=== PATIENT | male | born 1995 | race Caucasian/White ===

== ENCOUNTER 2017-02-08 13:20 | Emergency (ER) | payer OTHER ==
[~2017-02-08] VITALS: Ht 180.3 cm; Wt 66.5 kg
[~2017-02-08 13:20] MED LIST: NO DAILY MEDS
--- OUTSIDE RECORDS SUMMARY | 2017-02-08 13:25 | XMS REPORT | Referral Summary ---
Author Author [facility] Organization [facility] Address Unknown Phone Unavailable Care Team Providers Care Financial Aid Coordinator Name Role Phone Dru Shah Primary Care Physician [phone] Encounter VC Date(s): 03/30/15 - 03/30/15 [facility] [address] [place] [address] Discharge Disposition: 01-Home or Self Care Attending Physician: Bryce Shah MD Admitting Physician: Bryce Shah MD Vital Signs Most recent to 1 oldest [Reference Range]: Temperature Tympanic 37.3 degC [36.6-38.1 degC] (03/30/15 3:32 PM) Peripheral Pulse 94 bpm Rate [60-100 bpm] (03/30/15 3:32 PM) Respiratory Rate 16 br/min [14-20 br/min] (03/30/15 3:32 PM) Blood Pressure 124/68 mmHg [90-140/60-90 mmHg] (03/30/15 3:32 PM) SpO2 98 % (03/30/15 3:32 PM) Problem List Condition Effective Dates Status Health Status Informant Depression(Confirmed Active ) Outbursts of Active anger(Confirmed) Tobacco Active patient user(Confirmed) Common Active wart(Confirmed) Allergies, Adverse Reactions, Alerts No Known Allergies Medications sertraline 50 mg oral tablet 50 mg 1 tabs, Oral, BID, # 60 tabs, 5 Refill(s), Pharmacy: [facility] # [id number], 1 tabs Oral BID,x30 days Start Date: 04/10/15 Stop Date: 10/07/15 Status: Ordered Results No data available for this section Immunizations Vaccine Date Refusal Reason diphtheria/pertussis, acel/tetanus ped 07/27/95 haemophilus b conjugate (HbOC) vaccine 05/04/95 measles/mumps/rubella virus vaccine 05/04/95 Procedures Procedure Date Related Diagnosis Body Site Destruction (eg, laser surgery, 03/30/15 electrosurgery, cryosurgery, chemosurgery, surgical curettement), premalignant lesions (eg, actinic keratoses); first lesion Destruction (eg, laser surgery, 03/30/15 electrosurgery, cryosurgery, chemosurgery, surgical curettement), premalignant lesions (eg, actinic keratoses); first lesion Destruction (eg, laser surgery, 03/30/15 electrosurgery, cryosurgery, chemosurgery, surgical curettement), premalignant lesions (eg, actinic keratoses); first lesion Social History Social History Type Response Smoking Status Current every day smoker; Type: Cigarettes; Tobacco use per day: Pack Assessment and Plan Extracted from: Title: Office Visit Note Author: Bryce Shah MD Date: 03/30/15 Assessment/Plan Common wart Depression Outbursts of anger Plan: I'm going to increase your sertraline to 50 mg twice a day and if that is working well at the end of 6 weeks just follow-up in 6 months. It's not working well up in 6 weeks follow-up. 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 We discussed a cycle of healing. We discussed wound care. Orders: sertraline, 1 tabs, Oral, BID, # 60 tabs, 6 Refill(s), Pharmacy: [facility] #[id number], 1 tabs Oral BID,x30 days
--- OUTSIDE RECORDS SUMMARY | 2017-02-08 13:25 | XMS REPORT | Referral Summary ---
Author Author [facility] Organization [facility] Address Unknown Phone Unavailable Care Team Providers Care Stock Repairer Name Role Phone Dru Shah Primary Care Physician [phone] Encounter VC Date(s): 03/30/15 - 03/30/15 [facility] [address] [place] [address] Discharge Disposition: 01-Home or Self Care Attending [...] BID, # 60 tabs, 5 Refill(s), Pharmacy: [facility] # [id number], 1 tabs Oral BID,x30 days Start Date: [...] BID, # 60 tabs, 6 Refill(s), Pharmacy: [facility] #[id number], 1 tabs Oral BID,x30 days
--- OUTSIDE RECORDS SUMMARY | 2017-02-08 13:25 | XMS REPORT | Referral Summary ---
Author Author [facility] Organization [facility] Address Unknown Phone Unavailable Care Team Providers Care Rn Radiation Name Role Phone Amara Melgar Primary Care Physician [phone] Encounter VC Date(s): 04/08/16 - 04/08/16 [facility], Family [address] [place] [address] Discharge Disposition: 01-Home or Self Care Attending Physician: Andry Melgar MD Admitting Physician: Andry Melgar MD Vital Signs Most recent to 1 oldest [Reference Range]: Blood Pressure 140/70 mmHg [90-140/60-90 mmHg] (04/08/16 3:02 PM) Problem List Condition Effective Dates Status Health Status Informant Acne(Confirmed) Active Depression(Confirmed Active ) Outbursts of Active anger(Confirmed) Tobacco Active patient user(Confirmed) Common Active wart(Confirmed) Allergies, Adverse Reactions, Alerts No Known Allergies Medications Minocin 100 mg oral capsule 100 mg 1 caps, Oral, Daily, X 60 days, # 60 caps, 0 Refill(s), Pharmacy: [id number], 1 caps Oral Daily,x60 days Start Date: 04/08/16 Stop Date: 06/07/16 Status: Ordered sertraline 50 mg oral tablet 75 mg 1.5 tabs, Oral, Daily, # 90 tabs, 0 Refill(s), Pharmacy: [facility] [id number], 1.5 tabs Oral Daily,x60 days Start Date: 04/08/16 Stop Date: 06/07/16 Status: Ordered Results No data available for this section Immunizations Vaccine Date Refusal Reason diphtheria/pertussis, acel/tetanus ped 07/27/95 haemophilus b conjugate (HbOC) vaccine 05/04/95 measles/mumps/rubella virus vaccine 05/04/95 Procedures No data available for this section Social History Social History Type Response Smoking Status Current some day smoker; Type: E-Cigarette Assessment and Plan Extracted from: Title: Ambulatory Patient Education Author: Andry Melgar MD Date: Family Medicine Acne Acne is a skin problem that causes pimples. Acne occurs when the pores in your skin get blocked. Your pores may become red, sore, and swollen (inflamed), or infected with a common skin bacterium (Propionibacterium acnes). Acne is a common skin problem. Up to 80% of people get acne at some time. Acne is especially common from the ages of 12 to 24. Acne usually goes away over time with proper treatment. CAUSES Your pores each contain an oil gland. The oil glands make an oily substance called sebum. Acne happens when these glands get plugged with sebum, skin cells, and dirt. The P. acnes bacteria that are normally found in the oil glands then multiply, causing inflammation. Acne is commonly triggered by changes in your hormones. These hormonal changes can cause the oil glands to get bigger and to make more sebum. Factors that can make acne worse include: Hormone changes during adolescence. Hormone changes during women's menstrual cycles. Hormone changes during . Oil-based cosmetics and hair products. Harshly scrubbing the skin. Strong soaps. Stress. Hormone problems due to certain diseases. Long or oily hair rubbing against the skin. Certain medicines. Pressure from headbands, backpacks, or shoulder pads. Exposure to certain oils and chemicals. SYMPTOMS Acne often occurs on the face, neck, chest, and upper back. Symptoms include: Small, red bumps (pimples or papules). Whiteheads (closed comedones). Blackheads (open comedones). Small, pus-filled pimples (pustules). Big, red pimples or pustules that feel tender. More severe acne can cause: An infected area that contains a collection of pus (abscess). Hard, painful, fluid-filled sacs (cysts). Scars. DIAGNOSIS Your caregiver can usually tell what the problem is by doing a physical exam. TREATMENT There are many good treatments for acne. Some are available over the counter and some are available with a prescription. The treatment that is best for you depends on the type of acne you have and how severe it is. It may take 2 months of treatment before your acne gets better. Common treatments include: Creams and lotions that prevent oil glands from clogging. Creams and lotions that treat or prevent infections and inflammation. Antibiotics applied to the skin or taken as a pill. Pills that decrease sebum production. control pills. Light or laser treatments. Minor surgery. Injections of medicine into the affected areas. Chemicals that cause peeling of the skin. HOME CARE INSTRUCTIONS Good skin care is the most important part of treatment. Wash your skin gently at least twice a day and after exercise. Always wash your skin before bed. Use mild soap. After each wash, apply a water-based skin moisturizer. Keep your hair clean and off of your face. Shampoo your hair daily. Only take medicines as directed by your caregiver. Use a sunscreen or sunblock with SPF 30 or greater. This is especially important when you are using acne medicines. Choose cosmetics that are noncomedogenic. This means they do not plug the oil glands. Avoid leaning your chin or forehead on your hands. Avoid wearing tight headbands or hats. Avoid picking or squeezing your pimples. This can make your acne worse and cause scarring. SEEK MEDICAL CARE IF: Your acne is not better after 8 weeks. Your acne gets worse. You have a large area of skin that is red or tender. This information is not intended to replace advice given to you by your health care provider. Make sure you discuss any questions you have with your health care provider. Document Released: 11/03/2001 Document Revised: 03/23/2015 Document Reviewed: [facility] Patient Information 2015 [employer] [facility]. No follow up information was provided. Extracted from: Title: Office Visit Note Author: Andry Melgar MD Date: 04/08/16 Assessment/Plan Acne Trial of minocin 100mg po daily for 30 days. Call report. Side effects discussed. Mother here. Depression This issue was reviewed, appears stable, and current therapy continued except as mentioned. Appropriate lab was reviewed from the most recent appropriate entry and lab was ordered if needed in the cpoe/nursing orders, and follow up recommended generally in 90 days and no later then six months. Please make the medication adjustments we discussed. Please notify the office for any difficulties or concerns. Zoloft to 100mg one and 1/2 tabs daily. Call report. MARLENI (generalized anxiety disorder) The patient was offered and/or directed to a specialist for this issue. The patient refused or at least deferred any referral at this time. To [facility] when interested. A work/school note was offered and deferred by the patient. Tobacco user Smoking Cessation was discussed. The patient is welcome to f/u for therapy or medication for smoking cessation at any time that they are willing to quit.
--- OUTSIDE RECORDS SUMMARY | 2017-02-08 13:25 | XMS REPORT | Referral Summary ---
Author Author [facility] Organization [facility] Address Unknown Phone Unavailable Care Team Providers Care Java Portal Developer Name Role Phone Dru Shah Primary Care Physician [phone] Encounter VC Date(s): 03/30/15 - 03/30/15 [facility] [address] [place] [address] Discharge Disposition: 01-Home or Self [...] BID, # 60 tabs, 5 Refill(s), Pharmacy: [facility] # [id number], 1 tabs Oral BID,x30 days Start Date: [...] BID, # 60 tabs, 6 Refill(s), Pharmacy: [facility] #[id number], 1 tabs Oral BID,x30 days
[2017-02-08 13:26] VITALS: O2SAT 97; Ht 180.3 cm; Wt 66.5 kg
--- OUTSIDE RECORDS SUMMARY | 2017-02-08 13:26 | XMS REPORT | Referral Summary ---
Author Author [facility] Organization [facility] Address Unknown Phone Unavailable Care Team Providers Care Lead Caregiver Name Role Phone Amara Melgar Primary Care Physician [phone] Encounter VC Date(s): 05/16/16 - 05/16/16 [facility], Family [address] [place] [address] Discharge Disposition: 01-Home or Self Care Attending Physician: Andry Melgar MD Admitting Physician: Andry Melgar MD Vital Signs Most recent to 1 oldest [Reference Range]: Blood Pressure 120/70 mmHg [90-140/60-90 mmHg] (05/16/16 10:38 AM) Problem List Condition Effective Dates Status Health Status Informant Acne(Confirmed) Active Depression(Confirmed Active ) Outbursts of Active anger(Confirmed) Tobacco Active patient user(Confirmed) Common Active wart(Confirmed) Allergies, Adverse Reactions, Alerts No Known Allergies Medications Minocin 100 mg oral capsule 100 mg 1 caps, Oral, Daily, # 30 caps, 0 Refill(s), Pharmacy: [facility] [id number], 1 caps Oral Daily Start Date: 05/16/16 Status: Ordered Ocuflox 0.3% ophthalmic solution 2 drops, Eye-Both, BID, X 5 days, # 5 mL, 0 Refill(s), Pharmacy: [facility] [id number] Start Date: 05/16/16 Stop Date: 05/21/16 Status: Ordered Results No data available for [...] care provider. Document Released: 11/03/2001 Document Revised: 11/27/2015 Document Reviewed: [facility] Patient Information 2016 [employer]. No follow up information was provided. Extracted from: Title: Office Visit Note Author: Andry Melgar MD Date: 05/16/16 Assessment/Plan Acne This issue was reviewed, appears stable, and current therapy continued except as mentioned. Appropriate lab was reviewed from the most recent appropriate entry and lab was ordered if needed in the cpoe/nursing orders, and follow up recommended generally in 90 days and no later then six months. Refill minocin and restart. Acute URI Minocin given and should be effective for any bacterial uri. RTW note given. The patient has family members present who are agreeable with today's plan and have no additional concerns or requests. Mother here. Corneal abrasion, right Ocuflox .3% two drops bid for five days. OTC nsaids for pain. RTC if not improving. Depression This issue was reviewed, appears stable, and current therapy continued except as mentioned. Appropriate lab was reviewed from the most recent appropriate entry and lab was ordered if needed in the cpoe/nursing orders, and follow up recommended generally in 90 days and no later then six months. Mood stable. Tobacco user Smoking Cessation was discussed. The patient is welcome to f/u for therapy or medication for smoking cessation at any time that they are willing to quit. Orders: minocycline, 100 mg 1 caps, Oral, Daily, # 30 caps, 0 Refill(s), Pharmacy: [facility] [id number], 1 caps Oral Daily ofloxacin ophthalmic, 2 drops, Eye-Both, BID, X 5 days, # 5 mL, 0 Refill(s), Pharmacy: [facility] [id number]
--- OUTSIDE RECORDS SUMMARY | 2017-02-08 13:26 | XMS REPORT | Continuity of Care Document ---
Author Author [facility] Organization [facility] Address Unknown Phone Unavailable Support Name Relationship Address Phone GOKUL QUINTANA MD Caregiver [address] [place] [address] JAIMIE LANGLEY II, MD Caregiver [address] [facility] [address] [place] [phone] SARAHI ROMO MD Caregiver [address] [place] [address] JANUARY DEMOND Next Of Kin [address] [place] [address] [id number] Insurance Providers Payer Name Policy Number Subscriber Name Relationship [facility] [id number] [place] Ruggiero 18 Self Problems Medical Problems Problem Onset Date Status Abrasions of multiple sites Unknown Active Fall from one level to another Unknown Active Abrasions of multiple sites Unknown Active Strain of elbow or forearm, left Unknown Active Medications Medication Dose Route Sig Days/Qty Instructions Order Date Discontinued Date Status [No Daily Meds] 07/25/14 Active Social History Social History Problem Response Recorded Date/Time Smoking Status Current every day smoker 07/25/2014 8:10am Hx Alcohol Use No 07/25/2014 8:10am Hospital Discharge Instructions No hospital discharge instructions. Plan of Care No plan of care. Functional Status Query Response Date Recorded Physical Hygiene Self July 25, 2014 8:10am Disabilities None July 25, 2014 8:10am Devices Used None July 25, 2014 8:10am Dressing Self July 25, 2014 8:10am Ambulation Self July 25, 2014 8:10am Diet Self July 25, 2014 8:10am Mental Status Alert Oriented July 25, 2014 8:52am Disabilities None July 25, 2014 8:10am Devices Used None July 25, 2014 8:10am Physical Hygiene Self July 25, 2014 8:10am Dressing Self July 25, 2014 8:10am Ambulation Self July 25, 2014 8:10am Diet Self July 25, 2014 8:10am Allergies, Adverse Reactions, Alerts Allergen Type Severity Reaction Status Last Updated No Known Allergies Active 07/25/14 Immunizations Name Given Type Hx Tetanus, Diptheria, Pertussis Y 07/25/14 Historical Hx Tetanus, Diptheria, Pertussis Y 07/25/14 Historical Vital Signs Acute Vital Signs Vital Response Date/Time Temperature (Fahrenheit) 97.1 deg F (96.8 - 99.1) Temperature (Calculated Celsius) 36.26911 degrees C (36.0 - 37.3) Pulse Rate (adult) 95 bpm (60 - 100) Respiratory Rate 16 breaths/min (10 - 20) O2 Sat by Pulse Oximetry 99 % (90 - 100) Blood Pressure 134/78 mm Hg Height 5 ft 11 in Weight 161 lb Body Mass Index 22.0 kg/m^2 Results Test Source Date Result Interp. Ref. Range Comments Lab Scanned Report August 22, 2013 9:30am LAB TEST FORM REQUEST [id number] - Name: RICHMOND RUGGIERO Unit #: [id number] : 1995 Sex: M Loc / Svc: ED DOS: Signed Report #: [id number] DIAGNOSTIC IMAGING REPORT TYPE OF EXAM: ELBOW LEFT 3 VIEW Dictated By: GAUTAM ARAMBULA MD Indication: ITS.REASON: fall, elbow pain tender to palpation proximal radius Comparison: None Findings: There is no acute fracture, dislocation or malalignment identified. Impression: No acute osseous abnormality. . Procedures No known history of procedures. Encounters Encounter Location Date/Time Departed Emergency Room [facility] 07/25/14 7:59am Recent Diagnosis
--- OUTSIDE RECORDS SUMMARY | 2017-02-08 13:26 | XMS REPORT | Referral Summary ---
Author Author [facility] Organization [facility] Address Unknown Phone Unavailable Care Team Providers Care Stud Driver Name Role Phone Dru Shah Primary Care Physician [phone] Encounter VC Date(s): 03/30/15 - 03/30/15 [facility] [address] [place] [address] Discharge Disposition: 01-Home or Self [...] BID, # 60 tabs, 5 Refill(s), Pharmacy: [facility] # [id number], 1 tabs Oral BID,x30 days Start Date: [...] BID, # 60 tabs, 6 Refill(s), Pharmacy: [facility] #[id number], 1 tabs Oral BID,x30 days
--- OUTSIDE RECORDS SUMMARY | 2017-02-08 13:26 | XMS REPORT | Continuity of Care Document ---
Author Author [facility] Organization [facility] Address Unknown Phone Unavailable Allergies Active Description Code Type Severity Reaction Onset Reported/Identified Relationship to Patient Clinical Status Yes No Known Allergies NKMA N/A N/A 02/11/2015 Medications Problems Procedures Results Encounters ACCT No. Visit Date/Time Discharge Status Pt. Type Provider Facility Loc./Unit Complaint [id number] 01/10/2017 10:51:00 2016 23:59:00 DIS Outpatient Andry Melgar [facility] vomiting [id number] 05/16/2016 10:18:00 2015 23:59:00 DIS Outpatient Andry Melgar [facility] sore swollen eye [id number] 04/08/2016 14:49:00 2015 23:59:00 DIS Outpatient Andry Melgar [facility] new pt to est was Dr Shah
--- OUTSIDE RECORDS SUMMARY | 2017-02-08 13:26 | XMS REPORT | Referral Summary ---
Author Author [facility] Organization [facility] Address Unknown Phone Unavailable Care Team Providers Care Enamel Burner Name Role Phone Amara Melgar Primary Care Physician [phone] Encounter VC Date(s): 01/10/17 - 01/10/17 [facility] [address] [place] [address] Discharge Diagnosis: Mild nausea and vomiting Discharge Diagnosis: Depression Discharge Diagnosis: Exposure to influenza Discharge Diagnosis: Acute URI Discharge Disposition: 01-Home or Self Care Attending Physician: Andry Melgar MD Admitting Physician: Andry Melgar MD Vital Signs Most recent to 1 oldest [Reference Range]: Blood Pressure 120/80 mmHg [90-140/60-90 mmHg] (01/10/17 11:03 AM) Problem List Condition Effective Dates Status Health Status Informant Acne(Confirmed) Active Depression(Confirmed Active ) Outbursts of Active anger(Confirmed) Tobacco Active patient user(Confirmed) Common Active wart(Confirmed) Allergies, Adverse Reactions, Alerts No Known Allergies Medications promethazine-codeine 6.25 mg-10 mg/5 mL oral syrup 5 mL, Oral, q4hr, as needed for cough, # 120 mL, 0 Refill(s), called to pharmacy (Rx) Start Date: 01/10/17 Status: Ordered Tamiflu 75 mg oral capsule 75 mg 1 caps, Oral, Daily, X 10 days, # 10 caps, 0 Refill(s), Pharmacy: [id number], 1 caps Oral Daily,x10 days Start Date: 01/10/17 Stop Date: 01/20/17 Status: Ordered Results No data available for this section Immunizations Given and Recorded Vaccine Date Status Refusal Reason diphtheria/pertussis, acel/tetanus ped 07/27/95 Recorded haemophilus b conjugate (HbOC) vaccine 05/04/95 Recorded measles/mumps/rubella virus vaccine 05/04/95 Recorded Procedures No data available for this section Social History Social History Type Response Smoking Status Current some day smoker; Type: E-Cigarette Assessment and Plan Extracted from: Title: Ambulatory Patient Education Author: Andry Melgar MD Date: Obstetrics and Gynecology Clear Liquid Diet A clear liquid diet is a short-term diet that is prescribed to provide the necessary fluid and basic energy you need when you can have nothing else. The clear liquid diet consists of liquids or solids that will become liquid at room temperature. You should be able to see through the liquid. There are many reasons that you may be restricted to clear liquids, such as: When you have a sudden-onset (acute) condition that occurs before or after surgery. To help your body slowly get adjusted to food again after a long period when you were unable to have food. Replacement of fluids when you have a diarrheal disease. When you are going to have certain exams, such as a colonoscopy, in which instruments are inserted inside your body to look at parts of your digestive system. WHAT CAN I HAVE? A clear liquid diet does not provide all the nutrients you need. It is important to choose a variety of the following items to get as many nutrients as possible: Vegetable juices that do not have pulp. Fruit juices and fruit drinks that do not have pulp. Coffee (regular or decaffeinated), tea, or soda at the discretion of your health care provider. Clear bouillon, broth, or strained broth-based soups. High-protein and flavored gelatins. Sugar or honey. Ices or frozen ice pops that do not contain milk. If you are not sure whether you can have certain items, you should ask your health care provider. You may also ask your health care provider if there are any other clear liquid options. This information is not intended to replace advice given to you by your health care provider. Make sure you discuss any questions you have with your health care provider. Document Released: 11/06/2006 Document Revised: 11/11/2014 Document Reviewed: [employer] Patient Education 2016 [employer] No follow up information was provided. Extracted from: Title: Office Visit Note Author: Andry Melgar MD Date: 01/10/17 Assessment/Plan Acute URI Zpack Depression The patient's issue is nearly or completely resolved. There is no further issues or testing desired by them at this time. Mood stable. A work /school note was offered and deferred by the patient. Exposure to influenza Tamiflu 75mg po qd for ten days. Mild nausea and vomiting Phen w/cod. May cause sedation. RTC if not improving.
--- OUTSIDE RECORDS SUMMARY | 2017-02-08 13:44 | XMS REPORT | Continuity of Care Document ---
Author Author [facility] Organization [facility] Address Unknown Phone Unavailable Allergies Active Description Code Type Severity Reaction Onset Reported/Identified Relationship to Patient Clinical Status Yes No Known Allergies NKMA N/A N/A 02/11/2015 Medications Problems Procedures Results Encounters ACCT No. Visit Date/Time Discharge Status Pt. Type Provider Facility Loc./Unit Complaint [id number] 01/10/2017 10:51:00 2016 23:59:00 DIS Outpatient Andry Melgar [facility] New FM vomiting [id number] 05/16/2016 10:18:00 2015 23:59:00 DIS Outpatient Andry Melgar [facility] New FM sore swollen eye [id number] 04/08/2016 14:49:00 2015 23:59:00 DIS Outpatient Andry Melgar [facility] New FM new pt to est was Dr Shah
--- OUTSIDE RECORDS SUMMARY | 2017-02-08 13:44 | XMS REPORT | Continuity of Care Document ---
Author Author Daniel [facility] Organization [facility] Address Unknown Phone Unavailable Support Name Relationship Address Phone GOKUL QUINTANA MD Caregiver [address] [place] [address] JAIMIE LANGLEY II, MD Caregiver [address] [facility] [address] [place] [phone] SARAHI ROMO MD Caregiver [address] [place] [address] JANUARY DEMOND Next Of Kin [address] [place] [address] [id number] Insurance Providers Payer Name Policy Number Subscriber Name Relationship [facility] [id number] Richmond Ruggiero 17 Self Problems Medical Problems [...] F (96.8 - 99.1) Temperature (Calculated Celsius) 36.79157 degrees C (36.0 - 37.3) Pulse Rate [...] 22, 2013 9:30am LAB TEST FORM REQUEST [id number] - Name: RICHMOND RUGGIERO Unit #: [id number] : 1995 Sex: M Loc / Svc: ED DOS: Signed Report #: [id number] DIAGNOSTIC IMAGING REPORT TYPE OF EXAM: ELBOW LEFT 3 VIEW Dictated By: GAUTAM ARAMBULA MD Indication: ITS.REASON: fall, elbow pain tender to palpation proximal radius Comparison: None Findings: There is no acute fracture, dislocation or malalignment identified. Impression: No acute osseous abnormality. . Procedures No known history of procedures. Encounters Encounter Location Date/Time Departed Emergency Room [facility] 07/25/14 7:59am Recent Diagnosis
[2017-02-08] MEDS ORDERED: LIDOCAINE 1% (10mg/ml) 30ml SDV INFIL ONE (13:45)
--- NOTE | 2017-02-08 14:03 | ERPDOC ---
Departure Disposition Decision Date: Feb 08, 2017 Disposition Decision Time: 14:16 (SARAHI ROMO MD) Disposition: 01 DISCHARGED HOME, SELF-CARE Impression Impression (DELPHINE DURAND DO) Impression: Primary Impression: Laceration of left little finger Severity: Moderate (SARAHI ROMO MD) Condition: Stable Seen By: Physician only (SARAHI ROMO MD) Referrals: JAIMIE LANGLEY II, MD (Family) Patient Instructions: Care For Your Stitches (ED) Problems/Meds/Labs Reviewed?: Yes Medications reviewed and manag: Yes (SARAHI ROMO MD) Additional Instructions: Follow-up for suture removal with physician in 7-10 days Departure Forms: Return to Work/School Permit Return to Work/School Date: Feb 09, 2017 Restrictions: Must wear bandage over finger until stitches removed Mental Status: Alert, Oriented (DELPHINE DURAND DO) Follow up care ordered?: Yes Mental Status: Alert, Oriented (SARAHI ROMO MD) Scripts Cephalexin (Keflex) 500 Mg Capsule 1 CAP PO TID for 7 Days, #21 CAP Prov: SARAHI ROMO MD 02/08/17 HPI - Skin General General Chief Complaint: Laceration Stated Complaint: CUT PINKY FINGER ON LEFT HAND Time Seen by Provider: 13:39 Source: patient (Patient presents to the ER with a 1cm laceration to the distal anterior 5th digit right hand. ) Exam Limitations: no limitations (DELPHINE DURAND DO) HPI - Skin General Occurred At: work Onset: Changing over time Duration: 1-3 hrs Pain Scale: Now: 0/10, Worst: Unable to Rate Severity: mild Possible Cause: other (Cut with glass) Associated Symptoms: other Hx of Similar Symptoms: Yes (DELPHINE DURAND DO) Allergies: Coded Allergies: No Known Allergies (Unverified , 02/08/17) Past History Past Medical History Pt denies signifigant PMH Hx Echocardiogram: No (DELPHINE DURAND DO) Surgical History Denies Surgeries (DELPHINE DURAND DO) Family History Family History: Negative (DELPHINE DURAND DO) Vaccines Hx Tetanus, Diptheria, Pertuss: Yes (07/25/14) (DELPHINE DURAND DO) Social History Smoking Status: Current every day smoker Does patient use chewing tobac: No # of Packs/Tins per Day: 1 Second Hand Exposure: No Substance Use Type: does not use Marital Status: Single Sexuality: female partner Housing: house Household Members: significant other Service: No Current Occupational Status: employed Occupational Hazard: No Advance Directives: Yes Full Code (LADARIUS,DELPHINE DO) Record Review Pertinent history updated: Yes (LADARIUS,DELPHINE DO) Review of Systems Constitutional Constitutional: DENIES: chills, fever (LADARIUS,DELPHINE DO) Eyes Lids/Accessories: DENIES: erythema, swelling (LADRAIUS,DELPHINE DO) ENMT Ears: DENIES: erythema, pain Balance: DENIES: ataxia, vertigo Sinuses: DENIES: congestion, rhinorrhea Mouth/Throat: DENIES: sore throat (LADARIUS,DLEPHINE DO) Cardiovascular Cardiac: DENIES: chest pain, dyspnea on exertion, orthopnea Rhythm/Rate: DENIES: tachycardia (LADARIUS,DELPHINE DO) Pulmonary Respiratory: DENIES: cough, dyspnea, sputum (LADARIUS,DELPHINE DO) GI Upper Abdomen: DENIES: nausea, pain, vomiting Lower Abdomen: DENIES: constipation, diarrhea, pain (LADARIUS,DELPHINE DO) General: DENIES: dysuria (LADARIUS,DELPHINE DO) Musculoskeletal General: DENIES: cramps, pain, weakness (LADARIUS,DELPHINE DO) Integumentary Skin: other, see HPI, DENIES: color change, itching, rash (LADARIUS,DELPHINE DO) Neurological General: DENIES: ataxia, change in strength, headache, numbness, poor coordination, seizures, syncope, vertigo, weakness (LADARIUS,DELPHINE DO) Psychiatric Psychiatric: DENIES: anxiety, depression, nervousness (LADARIUS,DELPHINE DO) Hematologic/Lymphatic Hematologic/Lymphatic: DENIES: anemia (LADARIUS,DELPHINE DO) Allergic/Immunological Allergic/Immunoligical: DENIES: sneezing (LADARIUS,DELPHINE DO) All other Systems All Other Systems: Reviewed and Negative (LADARIUS,DELPHINE DO) Physical Exam General General Nourishment: well nourished, well developed, appears stated age, adult , thin General Body Habitus: well groomed (LADARIUS,DELPHINE DO) Vitals and Pain First Documented Vital Signs Date Time Temp Pulse Resp B/P Pulse Ox O2 Delivery O2 Flow Rate FiO2 02/08/17 13:26 98.2 86 16 133/74 97 Room Air (SARAHI ROMO MD) Vitals and Pain Weight: Kilograms: 66.500 Height (feet): 5 Height (inches): 11.00 Triage Pain Scale: (LADARIUSTRINADELPHINE DO) RN VS reviewed by Provider: Yes (LADARIUSDELPHINE DO) Eyes (brief) Eyes Brief: found: EOMI, PERRL (LADARIUS,DELPHINE DO) ENMT (brief) ENMT Brief: FOUND: mucosa moist (LADARIUS,DELPHINE DO) Neck (brief) Neck: FOUND: trachea midline, NOT FOUND: tracheal deviation (LADARIUS,DELPHINE DO) Respiratory (brief) Respiratory: FOUND: clear all ho, equal bilaterally (LADARIUS,DELPHINE DO) Cardiovascular (brief) Cardiac: FOUND: regular rate, regular rhythm Capillary Refill: <2 sec Pulses: all distal extremities, equal, strong (LADARIUS,DELPHINE DO) Abdomen (brief) Abdominal Brief: FOUND: bowel normo active x4, soft, NOT FOUND: distended, tender (LADARIUS,DELPHINE DO) Lymphatic (brief) Lymphatic Brief: NOT FOUND: adenopathy (LADARIUS,DELPHINE DO) Musculoskeletal (brief) Musculoskeletal Brief: NOT FOUND: spasm, tenderness (LADARIUS,DELPHINE DO) Integumentary (brief) Integumentary Brief: FOUND: other (Refer to HPI), pink, warm (LADARIUS,DELPHINE DO) Neurologic (brief) Neurological Brief: FOUND: CN w/o gross def to obs, gait w/o gross def to obs, motor-no gross deficits, sensory-no gross deficits, NOT FOUND: ataxia (LADARIUS, DELPHINE DO) Psychiatric (brief) Psychiatric Brief: FOUND: alert, attentive, normal affect, oriented (LADARUISDELPHINE DO) Procedures Procedures Performed Procedures Performed: Laceration Repair (SARAHI ROMO MD) Laceration/Wound Repair Wound/Laceration Repair : Wound Location: upper extremity Wound Length (cm): 1.0 Depth, Shape: subcutaneous, linear Explored: clean Irrigated: saline Prep: hibiclens Anesthesia: 1% Lidocaine Volume Anesthetic (ccs): 2 Type of Block: local Repaired With: Sutures Suture Size: 5:0 Suture Type: prolene Deep Layer Suture Size: 5:0 Number Deep Layer Sutures: 4 Sterile Dressing Applied?: No Splint Applied?: No Sling Applied?: No (SARAHI ROMO MD) Progress Results/Orders Orders Procedure Category Date Status Time Lidocaine 1% PHA 02/08/17 Complete (Xylocaine 1%) 13:45 Dressing (Ed) EDM 02/08/17 Transmitted 14:15 Irrigate/Clean Wound EDM 02/08/17 Transmitted 14:15 Neomycin/Polymyxin/Bacitracin PHA 02/08/17 Complete (Neosporin 14:15 (SARAHI ROMO MD) Medications Current ED Medications Lidocaine HCl (Xylocaine 1%) 100 mg O ONCE INFIL Last administered on t 13:47; Start 02/08/17 at 13:45; Stop 02/08/17 at 13:46; Status DC Neomycin/ Polymyxin/ Bacitracin (Neosporin) 1 applic O ONCE TOP ; Start at 14:15; Stop 02/08/17 at 14:17; Status DC (SARAHI ROMO MD) DELPHINE DURAND DO Feb 08, 2017 14:02 SARAHI ROMO MD Feb 08, 2017 14:18
--- NOTE | 2017-02-08 14:08 | NUR ---
WOUND REPAIR DR ROMO IN TO PLACE SUTURES.
[2017-02-08] MEDS ORDERED: NEOMYCIN/POLYM/BACITR OINT PACKET TOP ONE (14:15)
[2017-02-08] MEDS ORDERED: CEPH-583 PO (14:17)
[2017-02-08 14:27] VITALS: BP 133/81; PULSE 85; RESP 16; TEMP 96.9
--- NOTE | 2017-02-08 14:27 | NUR ---
DISMISSAL INSTRUCTIONS REVIEWED. PT VERBALIZES UNDERSTANDING. DISCHARGED AMB
== END 2017-02-08 14:27 | disposition home or self-care (01) ==
LOC: ED 13:20
DX: S61.217A Laceration without foreign body of left little finger without damage to nail, initial encounter (principal); W25.XXXA Contact with sharp glass, initial encounter; Y93.9 Activity, unspecified; Y92.89 Other specified places as the place of occurrence of the external cause; Y99.0 Civilian activity done for income or pay